=== PATIENT | male | born 1995 | race African-American/Black ===

== ENCOUNTER 2019-09-12 23:37 | Emergency (ER) | payer OTHER ==
[~2019-09-12] VITALS: Ht 182.9 cm; Wt 84.1 kg
[2019-09-12] MEDS ORDERED: GOOD200C PO (23:42)
[2019-09-13 01:16] LABS: BASO % 0.2 % (0.0-1.0); EOS # 0.1 10^3/uL (0.0-0.5); EOS % 0.4 % (0.0-3.0); HEMATOCRIT 42.7 % (42.0-52.0); HEMOGLOBIN 14.4 g/dl (13.5-17.5); LYMPH # 1.7 10^3/uL (1.5-5.0); LYMPH % 13.8 % (24.0-44.0); MEAN CORPUSCULAR HEMOGLOBIN 30.3 pg (27.0-33.0); MEAN CORPUSCULAR HGB CONC 33.7 g/dl (32.0-36.5); MEAN CORPUSCULAR VOLUME 89.9 fl (80.0-96.0); MONO # 1.4 10^3/uL (0.0-0.8); MONO % 10.8 % (0.0-5.0); NEUTROPHILS # 9.4 10^3/uL (1.5-8.5); NEUTROPHILS % 74.6 % (36.0-66.0); RED BLOOD COUNT 4.75 10^6/uL (4.30-6.10); WHITE BLOOD COUNT 12.6 10^3/uL (4.0-10.0)
[2019-09-13 01:30] LABS: MONO REFLEX EBV COMP NEGATIVE (NEGATIVE)
[2019-09-13 01:36] LABS: C REACTIVE PROTEIN QUANTITATIV 3.74 MG/DL (0.00-0.30)
[2019-09-13] MEDS ORDERED: AZITHROMYCIN 250MG TABLET PO ONE (01:45)
[2019-09-13] MEDS ORDERED: cefTRIAXone SOD 250MG VIAL (J0696 PER 250MG) IM ONE (01:45)
[2019-09-13] MEDS ORDERED: LIDOCAINE 1% SDV 5ML VIAL DILUENT ONE (01:45)
[2019-09-13 01:47] LABS: ERYTHROCYTE SEDIMENTATION RATE 116 mm/hr (0-15)
[2019-09-13] MEDS ORDERED: ISOVUE-370 76% 100ML VIAL As Ordered ONE (01:56)
--- NOTE | 2019-09-13 02:33 | REPVR ---
PROCEDURE INFORMATION: Exam: CT Neck With Contrast Exam date and time: 09/13/2019 2:11 AM Age: 24 years old Clinical indication: Neck pain; Additional info: L sided neck pain R/O abscess TECHNIQUE: Imaging protocol: Computed tomography images of the neck with intravenous contrast. Radiation optimization: All CT scans at this facility use at least one of these dose optimization techniques: automated exposure control; mA and/or kV adjustment per patient size (includes targeted exams where dose is matched to clinical indication); or iterative reconstruction. Contrast material: ISOVUE 370; Contrast volume: 75 ml; Contrast route: INTRAVENOUS (IV); COMPARISON: No relevant prior studies available. FINDINGS: Nasopharynx: Unremarkable. Oropharynx: Slight prominence of the left tonsil with central low-attenuation area suggesting left central tonsillar abscess measuring 8 mm in size. Hypopharynx: Unremarkable. Larynx: Unremarkable. Normal epiglottis. Retropharyngeal space: Unremarkable. Submandibular/Parotid glands: Normal. Glands are normal in size. Thyroid: Normal. No enlarged or calcified nodules. Lymph nodes: Unremarkable. No lymphadenopathy. Trachea: Visualized trachea is unremarkable. Lungs: Unremarkable as visualized. Bones/joints: Unremarkable. No acute fracture. Soft tissues: Unremarkable. No significant soft tissue swelling. IMPRESSION: 1. Slight left tonsillar enlargement with central low attenuation measuring 8 mm suggesting focus of phlegmon or tonsillar abscess. 2. Otherwise negative CT soft tissue neck. Electronically signed by: Erik Horner On 09/13/2019 02:33:21 AM
[2019-09-13] MEDS ORDERED: dexameTHASONE 20MG/5ML VIAL (J1100 PER 1MG) IV ONE (02:45)
[2019-09-13] MEDS ORDERED: AMPICILLIN SOD/SULBACTAM SOD 3 GM in D5W MINI-BAG PLUS 100 ML IV ONE (02:45)
[2019-09-13] MEDS ORDERED: AUGM875T28 PO (03:17)
[2019-09-13 04:33] VITALS: BP 122/70
[2019-09-15 13:05] LABS: EBV VIRAL CAPSID AG IgM <36.0 U/mL (0.0-35.9)
== END 2019-09-13 04:34 | disposition home or self-care (01) ==
LOC: M ED 23:37
DX: J36 Peritonsillar abscess (principal); F17.200 Nicotine dependence, unspecified, uncomplicated
CPT/HCPCS: 70491; 80047; 85025; 85652; 86140; 86308; 86664; 86665; 87880; 96365; 96375; 99283; 99284; J1100; Q9967

== ENCOUNTER 2019-09-13 16:44 | Emergency (ER) | payer OTHER ==
[~2019-09-13] VITALS: Ht 182.9 cm; Wt 71.0 kg
[~2019-09-13 16:44] MED LIST: AUGM875T28 PO; GOOD200C PO
[2019-09-13 17:19] LABS: BASO % 0.2 % (0.0-1.0); HEMATOCRIT 46.3 % (42.0-52.0); HEMOGLOBIN 15.6 g/dl (13.5-17.5); LYMPH # 0.8 10^3/uL (1.5-5.0); LYMPH % 7.4 % (24.0-44.0); MEAN CORPUSCULAR HEMOGLOBIN 30.5 pg (27.0-33.0); MEAN CORPUSCULAR HGB CONC 33.7 g/dl (32.0-36.5); MEAN CORPUSCULAR VOLUME 90.6 fl (80.0-96.0); MONO # 0.6 10^3/uL (0.0-0.8); MONO % 5.3 % (0.0-5.0); NEUTROPHILS # 9.6 10^3/uL (1.5-8.5); NEUTROPHILS % 86.7 % (36.0-66.0); PLATELET COUNT, AUTOMATED 209 10^3/uL (150-450); RED BLOOD COUNT 5.11 10^6/uL (4.30-6.10)
[2019-09-13 17:51] VITALS: BP 135/74
[2019-09-13 18:08] LABS: ERYTHROCYTE SEDIMENTATION RATE 11 mm/hr (0-15)
== END 2019-09-13 17:54 | disposition home or self-care (01) ==
LOC: M ED 16:44
DX: J36 Peritonsillar abscess (principal); F17.200 Nicotine dependence, unspecified, uncomplicated

== ENCOUNTER 2019-10-01 13:40 | Emergency (ER) | payer OTHER | END 2019-10-01 14:11 | disposition home or self-care (01) | LOC: M ED 13:40 | DX: J02.9 Acute pharyngitis, unspecified (principal); R05 Cough ==

== ENCOUNTER 2019-11-25 17:19 | Emergency (ER) | payer OTHER ==
[~2019-11-25] VITALS: Ht 182.9 cm; Wt 74.7 kg
[2019-11-25 17:20] VITALS: BP 116/57
[2019-11-25] MEDS ORDERED: AUGM875T28 PO (17:57)
== END 2019-11-25 18:20 | disposition home or self-care (01) ==
LOC: M ED 17:19
DX: S01.512A Laceration without foreign body of oral cavity, initial encounter (principal); W01.10XA Fall on same level from slipping, tripping and stumbling with subsequent striking against unspecified object, initial encounter; Y92.9 Unspecified place or not applicable; Y99.9 Unspecified external cause status; F17.200 Nicotine dependence, unspecified, uncomplicated